=== PATIENT | female | born 1970 | race Caucasian/White ===

== ENCOUNTER 2018-04-07 13:34 | Outpatient (CLI) | payer OTHER | END 2018-04-07 13:43 | disposition home or self-care (01) | LOC: RAD 13:34 | DX: M25.562 Pain in left knee (principal); M25.561 Pain in right knee ==

== ENCOUNTER 2020-02-29 15:37 | Outpatient (CLI) | payer OTHER | END 2020-02-29 15:47 | disposition home or self-care (01) | LOC: RAD 15:37 | PROVIDERS: ATTEND Orthopaedic Surgery | DX: M25.461 Effusion, right knee (principal); M17.12 Unilateral primary osteoarthritis, left knee; M25.561 Pain in right knee; M25.562 Pain in left knee; M25.512 Pain in left shoulder; M79.622 Pain in left upper arm ==